=== PATIENT | male | born 1980 | race Caucasian/White ===

== ENCOUNTER 2022-03-15 14:22 | Inpatient (IN) | payer BC, SELFPAY ==
[2022-03-15] MEDS ORDERED: Lorazepam 2 MG/ML VIAL ONE (14:46)
[2022-03-15] MEDS ORDERED: Thiamine HCl 200 MG/2 ML VIAL ONE (14:46)
[2022-03-15 14:59] LABS: #Basophils 0.1 10x3/uL (0.0-0.2); #Eosinphils 0.1 10x3/uL (0.0-0.5); #Monocytes 0.7 10x3/uL (0.0-1.1); #Neutrophils 8.8 10x3/uL (1.5-8.4); %Basophils 0.7 % (0.0-2.0); %Eosinophils 0.5 % (0.0-6.0); %Lymphocytes 22.6 % (18.0-47.0); %Monocytes 5.4 % (0.0-10.0); %Neutrophils 67.3 % (40.0-75.0); Hemoglobin 14.4 g/dL (13.5-17.5); Mean Corpuscular Hemoglobin 36.5 pg (27.0-33.0); Mean Corpuscular Volume 104.3 fl (81.2-95.1); Mean Platelet Volume 11.5 fl (7.4-10.4); Platelet Count 102 10x3/uL (150-450); RBC Distribution Width 15.1 % (11.5-14.5); Red Blood Cell (RBC) Count 3.95 10x6/uL (4.32-5.72); White Blood Cell (WBC) Count 13.1 10x3/uL (3.5-10.5)
[2022-03-15 15:11] LABS: ALT (SGPT) 167 U/L (8-55); AST (SGOT) 167 U/L (5-34); Albumin 4.9 g/dL (3.5-5.0); Alkaline Phosphatase 160 U/L (40-110); Anion Gap 29 mmol/L (10-20); BUN (Urea Nitrogen) 7 mg/dL (8.9-20.6); Bilirubin, Total 1.5 mg/dL (0.2-1.2); Calc. Creatinine Clearance 0 mL/min (70-130); Calcium 9.7 mg/dL (7.8-10.44); Carbon Dioxide 15 mmol/L (22-29); Chloride 98 mmol/L (98-107); Estimated GFR 110; Globulin 3.6 g/dL (2.4-3.5); Glucose 121 mg/dL (70-105); Lipase 76 U/L (8-78); Potassium 3.4 mmol/L (3.5-5.1); Protein, Total 8.5 g/dL (6.0-8.3); Sodium 139 mmol/L (136-145)
[2022-03-15] MEDS ORDERED: Cefepime 2 GM VIAL ONE (16:31)
[2022-03-15 17:03] LABS: Bilirubin Neg (Negative); Blood, Urine 250 (Negative); Clarity Clear (Clear); Glucose, Urine (Dipstick) Normal (Negative); Ketone, Urine 50 mg/dL (Negative); Leukocyte Negative (Negative); Nitrite Negative (Negative); Protein, Urine (Dipstick) 100 mg/dl (Neg-Trace); Specific Gravity, Urine 1.025 (1.002-1.036); Urobilinogen Normal mg/dL (Less than 2)
[2022-03-15 17:10] LABS: Amphetamine Not Detected (NotDetected); Barbiturates Screen Not Detected (NotDetected); Benzodiazepine Screen Detected (NotDetected); Cocaine Metabolite Screen Not Detected (NotDetected); Methadone Not Detected (NotDetected); Methamphetamine Not Detected (NotDetected); Opiate Screen Not Detected (NotDetected); Oxycodone Screen Not Detected (NotDetected); Phencyclidine (PCP) Not Detected (NotDetected); THC/Cannabinoid Screen Not Detected (NotDetected); Tricyclic Screen Not Detected (NotDetected)
[2022-03-15 17:27] LABS: Squamous Epithelial 0-3 HPF (0-3); WBC/HPF 0-3 HPF (0-3)
[2022-03-15 17:28] LABS: Bacteria/HPF Rare-Few HPF (None Seen); Mucous/LPF 2+ LPF (<2+)
[2022-03-15 17:31] LABS: Lactic Acid 2.4 mmol/L (0.5-2.2)
[2022-03-15 17:57] LABS: Magnesium 1.6 mg/dL (1.6-2.6)
[2022-03-15 18:11] LABS: Troponin I 0.022 ng/mL (< 0.028)
[2022-03-15 18:14] LABS: SARS-CoV-2 NAA Rapid Test Not Detected (NotDetected)
[2022-03-15] MEDS ORDERED: Lorazepam 1 MG TAB PO PRN (18:22)
[2022-03-15] MEDS ORDERED: Ondansetron ODT 4 MG TAB PO PRN (18:22)
[2022-03-15] MEDS ORDERED: Lorazepam 2 MG/ML VIAL IM PRN (18:22)
[2022-03-15] MEDS ORDERED: Electrolyte Replacement Protocol 1 EACH FS SCH (18:30)
[2022-03-15 19:07] LABS: ALT (SGPT) 133 U/L (8-55); AST (SGOT) 139 U/L (5-34); Albumin 4.4 g/dL (3.5-5.0); Alkaline Phosphatase 125 U/L (40-110); Anion Gap 16 mmol/L (10-20); BUN (Urea Nitrogen) 7 mg/dL (8.9-20.6); Bilirubin, Direct 0.6 mg/dL (0.1-0.3); Bilirubin, Total 1.4 mg/dL (0.2-1.2); Calc. Creatinine Clearance 0 mL/min (70-130); Calcium 8.6 mg/dL (7.8-10.44); Carbon Dioxide 21 mmol/L (22-29); Chloride 101 mmol/L (98-107); Estimated GFR 119; Globulin 2.9 g/dL (2.4-3.5); Glucose 116 mg/dL (70-105); Magnesium 1.5 mg/dL (1.6-2.6); Potassium 3.7 mmol/L (3.5-5.1); Protein, Total 7.3 g/dL (6.0-8.3); Sodium 134 mmol/L (136-145)
[2022-03-15 19:14] LABS: Syphilis Antibody Nonreactive (Nonreactive); Syphilis Antibody Index 0.03 S/CO (<1.00 Non-Reactive)
[2022-03-15 19:17] LABS: #Monocytes 0.4 10x3/uL (0.0-1.1); #Neutrophils 8.5 10x3/uL (1.5-8.4); %Basophils 0.3 % (0.0-2.0); %Lymphocytes 5.8 % (18.0-47.0); %Monocytes 4.3 % (0.0-10.0); %Neutrophils 88.8 % (40.0-75.0); Hemoglobin 13.4 g/dL (13.5-17.5); Mean Corpuscular HGB CONC 35.9 g/dL (32.0-36.0); Mean Corpuscular Hemoglobin 35.7 pg (27.0-33.0); Mean Corpuscular Volume 99.5 fl (81.2-95.1); Mean Platelet Volume 11.6 fl (7.4-10.4); Platelet Count 76 10x3/uL (150-450); RBC Distribution Width 15.3 % (11.5-14.5); Red Blood Cell (RBC) Count 3.75 10x6/uL (4.32-5.72); White Blood Cell (WBC) Count 9.5 10x3/uL (3.5-10.5)
[2022-03-15] MEDS: NS 0.9% w/ 20 MEQ KCL 1,000 ML/1,000 ML BAG IV SCH (19:30)
[2022-03-15 20:18] VITALS: BMI 21.6
[2022-03-15] MEDS: Dexmedetomidine In 0.9 % NaCl 100 ML IVPB SCH (20:24)
[2022-03-15] MEDS ORDERED: NS 0.9% w/ 20 MEQ KCL 1,000 ML ONE ×5 (20:32→20:33)
[2022-03-15] MEDS: Lorazepam 1 MG TAB PO SCH (20:40)
[2022-03-15] MEDS ORDERED: Multivit, Therapeutic 1 TAB PO SCH (21:00)
[2022-03-16] MEDS: Dexmedetomidine In 0.9 % NaCl 100 ML IVPB SCH (00:24)
[2022-03-16] MEDS ORDERED: Dexmedetomidine In 0.9 % NaCl 100 ML ONE (00:28)
[2022-03-16] MEDS ORDERED: Dexmedetomidine In 0.9 % NaCl 100 ML IVPB SCH (01:00)
[2022-03-16] MEDS: Lorazepam 1 MG TAB PO SCH ×2 (03:09→08:01)
[2022-03-16] MEDS: NS 0.9% w/ 20 MEQ KCL 1,000 ML/1,000 ML BAG IV SCH (03:11)
[2022-03-16 03:46] LABS: #Monocytes 0.3 10x3/uL (0.0-1.1); #Neutrophils 4.7 10x3/uL (1.5-8.4); %Basophils 0.3 % (0.0-2.0); %Eosinophils 0.5 % (0.0-6.0); %Monocytes 4.7 % (0.0-10.0); %Neutrophils 78.2 % (40.0-75.0); Mean Corpuscular HGB CONC 36.3 g/dL (32.0-36.0); Mean Corpuscular Hemoglobin 35.9 pg (27.0-33.0); Mean Corpuscular Volume 99.1 fl (81.2-95.1); Mean Platelet Volume 12.2 fl (7.4-10.4); Platelet Count 63 10x3/uL (150-450); RBC Distribution Width 14.8 % (11.5-14.5); Red Blood Cell (RBC) Count 3.34 10x6/uL (4.32-5.72)
[2022-03-16 03:51] LABS: ALT (SGPT) 106 U/L (8-55); AST (SGOT) 96 U/L (5-34); Alkaline Phosphatase 106 U/L (40-110); Anion Gap 16 mmol/L (10-20); BUN (Urea Nitrogen) 5 mg/dL (8.9-20.6); Bilirubin, Total 1.3 mg/dL (0.2-1.2); Calc. Creatinine Clearance 148 mL/min (70-130); Calcium 8.5 mg/dL (7.8-10.44); Carbon Dioxide 20 mmol/L (22-29); Chloride 104 mmol/L (98-107); Estimated GFR 119; Globulin 2.7 g/dL (2.4-3.5); Glucose 95 mg/dL (70-105); Magnesium 1.7 mg/dL (1.6-2.6); Potassium 3.8 mmol/L (3.5-5.1); Protein, Total 6.7 g/dL (6.0-8.3); Sodium 136 mmol/L (136-145)
[2022-03-16 04:02] LABS: Phosphorus 2.7 mg/dL (2.3-4.7)
[2022-03-16] MEDS ORDERED: Magnesium 2 GM/50 ML(in water) 2 GM in Premix Bag 1 BAG IVPB SCH (05:00)
[2022-03-16 06:31] VITALS: BP 142/97; TEMP 98
[2022-03-16] MEDS ORDERED: Multivit, Therapeutic 1 TAB PO SCH (09:00)
[2022-03-16] MEDS ORDERED: Folic Acid 1 MG TAB PO SCH (09:00)
[2022-03-16] MEDS ORDERED: Thiamine HCl 200 MG/2 ML VIAL SLOW IVP SCH (15:00)
[2022-03-16] MEDS ORDERED: Lorazepam 1 MG TAB PO PRN (18:22)
[2022-03-17] MEDS ORDERED: Lorazepam 1 MG TAB PO PRN (18:22)
[2022-03-18] MEDS ORDERED: Lorazepam 0.5 MG TAB PO SCH (03:00)
[2022-03-18] MEDS ORDERED: Lorazepam 0.5 MG TAB PO PRN (18:22)
[2022-03-19] MEDS ORDERED: Thiamine 100 MG TAB PO SCH (15:00)
== END 2022-03-16 14:05 | disposition home or self-care (01) | DRG 897 ==
LOC: CSHERS 14:22 → CSHICU 18:26
PROVIDERS: ADMIT Internal Medicine; ATTEND Internal Medicine
DX: F10.131 Alcohol abuse with withdrawal delirium (principal); E87.2 Acidosis; Z20.822 Contact with and (suspected) exposure to COVID-19; I95.9 Hypotension, unspecified; G89.29 Other chronic pain; M54.9 Dorsalgia, unspecified; F17.210 Nicotine dependence, cigarettes, uncomplicated; K70.9 Alcoholic liver disease, unspecified; Z79.899 Other long term (current) drug therapy; Z88.1 Allergy status to other antibiotic agents
CPT/HCPCS: 36415; 70450; 71045; 80053; 80306; 81003; 81015; 82248; 83605; 83690; 83735; 84100; 84443; 84484; 85025; 86780; 87040; 87086; 93005; 94760; J0692; J2060; J3370; J3411; J3475; J3480; U0002

== ENCOUNTER 2022-06-18 02:56 | Emergency (ER) | payer SELFPAY ==
[2022-06-18] MEDS ORDERED: Ketorolac Tromethamine 30 MG/ML VIAL ONE (03:33)
[2022-06-18] MEDS ORDERED: Ondansetron PF 4 MG/2 ML Vial ONE (03:33)
[2022-06-18 03:39] LABS: #Basophils 0.1 10x3/uL (0.0-0.2); #Eosinphils 0.1 10x3/uL (0.0-0.5); #Monocytes 1.7 10x3/uL (0.0-1.1); #Neutrophils 10.3 10x3/uL (1.5-8.4); %Basophils 0.3 % (0.0-2.0); %Eosinophils 0.5 % (0.0-6.0); %Lymphocytes 20.7 % (18.0-47.0); %Neutrophils 67.2 % (40.0-75.0); Hemoglobin 12.5 g/dL (13.5-17.5); Mean Corpuscular HGB CONC 35.3 g/dL (32.0-36.0); Mean Corpuscular Hemoglobin 33.7 pg (27.0-33.0); Mean Corpuscular Volume 95.4 fl (81.2-95.1); Mean Platelet Volume 11.8 fl (7.4-10.4); Platelet Count 207 10x3/uL (150-450); RBC Distribution Width 12.3 % (11.5-14.5); Red Blood Cell (RBC) Count 3.71 10x6/uL (4.32-5.72); White Blood Cell (WBC) Count 15.4 10x3/uL (3.5-10.5)
[2022-06-18 03:52] LABS: ALT (SGPT) 10 U/L (8-55); AST (SGOT) 11 U/L (5-34); Albumin 4.7 g/dL (3.5-5.0); Alkaline Phosphatase 61 U/L (40-110); Anion Gap 17 mmol/L (10-20); BUN (Urea Nitrogen) 11 mg/dL (8.9-20.6); Calc. Creatinine Clearance 0 mL/min (70-130); Calcium 10.1 mg/dL (7.8-10.44); Carbon Dioxide 25 mmol/L (22-29); Chloride 98 mmol/L (98-107); Estimated GFR 112; Globulin 3.5 g/dL (2.4-3.5); Glucose 96 mg/dL (70-105); Lipase 23 U/L (8-78); Potassium 3.7 mmol/L (3.5-5.1); Protein, Total 8.2 g/dL (6.0-8.3); Sodium 136 mmol/L (136-145)
[2022-06-18] MEDS ORDERED: metroNIDAZOLE 500 MG/100 ML BAG ONE (06:06)
[2022-06-18] MEDS ORDERED: Piperacillin/Tazobactam 3.375 GM VIAL ONE (06:07)
[2022-06-18] MEDS ORDERED: Iopamidol 300 61% 100 ML VIAL FS ONE (13:58)
== END 2022-06-18 07:14 | disposition short-term general hospital (02) ==
LOC: CSHERS 02:56
DX: K57.20 Diverticulitis of large intestine with perforation and abscess without bleeding (principal); F17.210 Nicotine dependence, cigarettes, uncomplicated
CPT/HCPCS: 74177; 80053; 83690; 85025; 96365; 96375; J1885; J2405; J2543; Q9967